=== PATIENT | female | born 1975 | race Caucasian/White ===

== ENCOUNTER 2017-10-18 10:27 | Emergency (ER) | payer BC, MEDICAID ==
[2017-10-18 10:27] VITALS: BMI 23.6
[2017-10-18 10:48] VITALS: BP 112/74; PULSE 80; RESP 18; TEMP 98; O2SAT 99
[2017-10-18] MEDS ORDERED: Oxycodone/Acetaminophen 5/325 mg Tab PO STA (10:53)
--- NOTE | 2017-10-18 10:56 | ED PDOC ---
HPI: Back Time Seen by Provider: 10/18/17 10:30 Chief Complaint (Nursing): Back Pain Chief Complaint (Provider): Back pain History Per: Patient Additional History Per: Patient Additional Complaint(s): Pt is a 41 yo female,PMH of Telly's Dz, Asthma and Seizure disorder (seizure free x 12 years, unmedicated), presents to ED with c/o back pain since yesterday. Denies injury. Reports taking Naprosyn and Motrin, no relief. No medications taken today thus far. No UTI like symptoms. no Bowel or bladder dysfunction Past Medical History Reviewed: Nursing Documentation, Vital Signs Vital Signs: Last Vital Signs Temp 98.0 F 10/18/17 10:45 Pulse 80 10/18/17 10:45 Resp 18 10/18/17 10:45 BP 112/74 10/18/17 10:45 Pulse Ox 99 10/18/17 10:45 - Medical History PMH: Telly's Disease, Asthma, Seizures - Surgical History Surgical History: - Family History Family History: States: Unknown Family Hx - Living Arrangements Living Arrangements: With Family - Social History Current smoker - smoking cessation education provided: No Alcohol: None Drugs: Denies - Immunization History Hx Tetanus Toxoid Vaccination: No Hx Influenza Vaccination: Yes Hx Pneumococcal Vaccination: No - Home Medications Home Medications: Ambulatory Orders Medication Instructions Recorded Ibuprofen 600 mg PO Q8 #30 tab 12/19/15 oxyCODONE/Acetaminophen [Percocet 1 tab PO QID PRN #14 tab 12/19/15 5/325 mg Tab] Albuterol Sulfate [Proair Hfa] 2 puff IH Q4H PRN #1 unit 02/04/16 Azithromycin [Zithromax Z-Mahendra] 250 mg PO DAILY #1 packet 02/04/16 predniSONE [predniSONE Tab] 40 mg PO DAILY #10 tab 02/04/16 Ibuprofen [Motrin] 600 mg PO Q6 #20 tab 10/18/17 diaZEpam [Valium] 5 mg PO BID PRN #10 tab 10/18/17 - Allergies Allergies/Adverse Reactions: Allergies Allergy/AdvReac Type Severity Reaction Status Date / Time Penicillins Allergy RASH Verified 02/04/16 10:28 Review of Systems ROS Statement: Except As Marked, All Systems Reviewed And Found Negative Musculoskeletal: Positive for: Back Pain Physical Exam - Reviewed Nursing Documentation Reviewed: Yes Vital Signs Reviewed: Yes - Physical Exam Appears: Positive for: Well, Non-toxic, No Acute Distress Head Exam: Positive for: ATRAUMATIC, NORMAL INSPECTION, NORMOCEPHALIC Skin: Positive for: Normal Color, Warm, DRY Eye Exam: Positive for: EOMI, Normal appearance, PERRL ENT: Positive for: Normal ENT Inspection Neck: Positive for: Normal, Painless ROM Cardiovascular/Chest: Positive for: Regular Rate, Rhythm Respiratory: Positive for: CNT, Normal Breath Sounds Gastrointestinal/Abdominal: Positive for: Normal Exam, Bowel Sounds, Soft Back: Positive for: Normal Inspection. Negative for: Vertebral Tenderness, Decreased ROM Extremity: Positive for: Normal ROM Neurologic/Psych: Positive for: Alert, Oriented - ECG O2 Sat by Pulse Oximetry: 99 Medical Decision Making Medical Decision Making: U.Dip (-) Leuks, nites or blood T-Spine XR: NAD, as read by [email or web address] Medicated with Toradol, Percocet and Valium Doing well on re-eval. Pt ambulating with steady gait Disposition - Clinical Impression Clinical Impression: Back pain - Patient ED Disposition Is Patient to be Admitted: No - Disposition Disposition: Routine/Home Disposition Time: 15:01 Condition: STABLE Prescriptions: diaZEpam [Valium] 5 mg PO BID PRN #10 tab PRN Reason: Pain, Mild (1-3) Ibuprofen [Motrin] 600 mg PO Q6 #20 tab Instructions: Back Pain (ED) Forms: [facility] (Syrian) - POA Present On Arrival: None
[2017-10-18] MEDS ORDERED: Oxycodone/Acetaminophen 5/325 mg Tab ONE (11:07)
--- NOTE | 2017-10-18 13:48 | RAD ---
HISTORY: back pain COMPARISON: No prior. FINDINGS: BONES: Gentle dextro convex curvature of the thoracolumbar junction. Alignment maintained. No fracture. DISC SPACES: Normal. SOFT TISSUES: Normal. OTHER FINDINGS: None. IMPRESSION: Normal radiographs of the thoracic spine.
== END 2017-10-18 14:53 | disposition home or self-care (01) ==
LOC: H.ER 10:27
DX: M54.9 Dorsalgia, unspecified (principal); J45.909 Unspecified asthma, uncomplicated; Z88.0 Allergy status to penicillin; E27.1 Primary adrenocortical insufficiency
CPT/HCPCS: 72070; 81025; 96372; 99283; J1885